=== PATIENT | female | born 1970 | race Caucasian/White ===

== ENCOUNTER 2025-04-07 21:45 | Emergency (ER) | payer MEDICAID, OTHER ==
[~2025-04-07] VITALS: Ht 175.3 cm; Wt 113.0 kg
[2025-04-07 21:49] VITALS: O2SAT 98
[2025-04-07] MEDS: SODIUM CHLORIDE 0.9% 1,000 ML IV ONE (22:47)
[2025-04-07 22:48] LABS: HEMATOCRIT. 37.0 % (36.0-48.0); HEMOGLOBIN. 12.2 g/dL (12.0-16.0); MEAN PLATELET VOLUME 6.8 fl (7.4-10.4); PLATELET 266 x1000/uL (130-400); RED BLOOD CELL COUNT 3.81 mill/uL (4.2-5.4); RED CELL DISTRIBUTION WIDTH 14.1 % (11.6-14.6)
[2025-04-07 23:00] LABS: CREATININE 0.5 mg/dL (0.6-1.0)
[2025-04-07 23:01] LABS: UREA NITROGEN BLOOD 12 mg/dL (9-23)
[2025-04-07 23:02] LABS: ASPARTATE AMINOTRANSFERASE 21 IU/L (<34)
[2025-04-07 23:03] LABS: BILIRUBIN DIRECT < 0.1 mg/dL (<=3.0); BILIRUBIN TOTAL 0.2 mg/dL (0.1-1.0); PROTEIN TOTAL 6.6 g/dL (6.0-8.3)
[2025-04-07 23:08] LABS: BAND% 2.0 % (1.0-6.0); LYMPHOCYTES % MANUAL 7.0 % (20.0-60.0); MONOCYTES % MANUAL 8.0 % (2.0-8.0); NEUTROPHILS % MANUAL 83.0 % (45.0-75.0); PLATELET ESTIMATE NORMAL
[2025-04-08 00:28] VITALS: BP 117/55; PULSE 77; RESP 15; TEMP 36.9; O2SAT 99
== END 2025-04-08 00:58 | disposition home or self-care (01) ==
LOC: ER 21:45 → CMPBEDREQ 04-08 08:46
DX: E11.649 Type 2 diabetes mellitus with hypoglycemia without coma (principal); E78.00 Pure hypercholesterolemia, unspecified; I10 Essential (primary) hypertension; R51.9 Headache, unspecified; Z79.4 Long term (current) use of insulin; Z91.048 Other nonmedicinal substance allergy status; R94.31 Abnormal electrocardiogram [ECG] [EKG]
CPT/HCPCS: 80076; 80048; 80320; 82962 ×2; 83690; 83735; 85025; 86850; 86900; 86901; 36415; 71045; 70450; 93005; 96360; 99285; J7030; G0480